=== PATIENT | female | born 1975 | race Caucasian/White ===

== ENCOUNTER 2019-02-18 08:14 | Emergency (ER) | payer OTHER, SELFPAY ==
[2019-02-18 08:16] VITALS: BP 150/97; PULSE 89; RESP 16; TEMP 36.1; O2SAT 100; BMI 50.0
--- NOTE | 2019-02-18 08:27 | RAD_ITS ---
STUDY: X-RAY - LEFT ANKLE REASON FOR EXAM: Female, 43 years old. Status post fall. Left lateral ankle pain. TECHNIQUE: 3 view(s) of the ankle. COMPARISON: None. FINDINGS: Normal visualized distal tibia and fibula. Normal medial and lateral malleoli. Normal tibiotalar articulation and ankle mortise. A plantar calcaneal spur. The visualized subtalar, talonavicular, calcaneocuboid and tarsal articulations are normal. There is mild soft tissue swelling laterally. RAD/Ankle min 3 Views IMPRESSION: Mild soft tissue swelling. No demonstrated acute osseous injury. Electronically Signed: Deejay Coyne MD at 8:46 EDT Tel , Service support ,
--- NOTE | 2019-02-18 08:27 | RAD_ITS ---
STUDY: X-RAY - LEFT FOOT CLINICAL: Female, 43 years old. Status post fall. TECHNIQUE: 3 view(s) of the foot. COMPARISON: None. FINDINGS: There is a plantar calcaneal spur. Normal visualized subtalar, talonavicular, calcaneocuboid, tarsal and tarsometatarsal articulations. Normal metatarsi. Normal metatarsophalangeal joint of the great toe. Normal tibial and fibular sesamoid bones. Normal interphalangeal joint of the great toe. Normal phalanges of the great toe. Normal second through fifth metatarsophalangeal joints. Normal interphalangeal joints and phalanges of the lesser toes. The soft tissue structures are unremarkable. RAD/Foot min 3 Views IMPRESSION: No demonstrated acute osseous changes. Electronically Signed: Deejay Coyne MD at 8:45 EDT Tel , Service support ,
--- NOTE | 2019-02-18 08:46 | ED.DCSUM_ITS ---
- ER Visit Summary Date of Service: 02/18/19 Chief Complaint: Left foot injury History of Present Illness: The patient is a 43 F states she is going to stairs last night when she slipped and fell sliding down 5 stairs. When she was sliding she felt a pop in her dorsum of her left foot. She notes pain with ambulation. She denies any other injuries. Had to call off work today due to pain. Physical Examination: Afebrile vital signs stable Patient is tenderness palpation over the dorsum of the left foot. There is no significant swelling or ecchymosis noted. Neurovascular intact. No leg pain. No knee pain. No breaks in skin. Test Results: X-rays of the left foot and ankle were negative for fracture. Emergency Department Course and Treatment: Patient will be placed in Moises wrap instructions for ice and ibuprofen follow-up with primary care if not improving return if worsening or concerns Impression: 1. Left foot ligamentous sprain This note was generated with [employer] dictation software. It may contain incorrect words, spelling, and punctuation that were not noted in review of the chart prior to signing ED Disposition - Plan for ED Patient: Disposition: Home or Assisted Living Instructions: Sprain Foot Referrals: Miguel Acosta MD [Primary Care Provider] - 10-14 Days if not better
--- NOTE | 2019-02-18 09:08 | ED.RN ---
DISCHARGE INSTRUCTIONS GIVEN TO AND REVIEWED WITH PATIENT, PATIENT DENIES QUESTIONS OR CONCERNS AND VOICES UNDERSTANDING OF DISCHARGE INSTRUCTIONS. PT AMBULATES OUT OF ROOM WITHOUT DIFFICULTY.
== END 2019-02-18 09:09 | disposition home or self-care (01) ==
LOC: ED 09:00
PROVIDERS: Emergency Provider Emergency Medicine; Family Provider Family Medicine; PCP Family Medicine
DX: S93.602A Unspecified sprain of left foot, initial encounter (principal); W10.9XXA Fall (on) (from) unspecified stairs and steps, initial encounter; Y93.9 Activity, unspecified; Y92.9 Unspecified place or not applicable; Y99.9 Unspecified external cause status; I10 Essential (primary) hypertension; Z79.899 Other long term (current) drug therapy
CPT/HCPCS: 73610; 73630; 99282

== ENCOUNTER 2019-04-02 10:48 | Emergency (ER) | payer OTHER, SELFPAY ==
[2019-04-02 10:49] VITALS: BP 145/81; PULSE 102; RESP 16; TEMP 35.8; O2SAT 97; BMI 47.9
[2019-04-02 11:07] VITALS: PULSE 96; RESP 16; TEMP 35.8; O2SAT 100
--- NOTE | 2019-04-02 11:13 | CT_ITS ---
STUDY: CT BRAIN WITHOUT CONTRAST REASON FOR EXAM: Female, 43 years old. Headache, nausea and vomiting following injury RADIATION DOSAGE (If Supplied By Facility): CTDIvol = ( 44.99 ) mGy, DLP = ( 762.36 ) mGycm TECHNIQUE: Transaxial CT imaging of the brain was performed without administration of intravenous contrast material. Individualized dose optimization techniques were used for this CT. COMPARISON: No relevant priors. FINDINGS: Normal soft tissue structures. Normal calvarium. Normal size ventricles and extra-axial spaces for the patient's age. Normal white matter tracts of the cerebral hemispheres. Normal basal ganglia and thalami. Normal brainstem. Normal cerebellum. There is no intracranial hemorrhage. There are no findings of an acute ischemic infarction. Normal visualized paranasal sinuses. CT/Brain/Head without Contrast IMPRESSION: Normal unenhanced CT scan of the brain. Electronically Signed: Deejay Coyne MD at 11:50 EST Tel , Service support ,
--- NOTE | 2019-04-02 11:15 | ED.DCSUM_ITS ---
History of Present Illness Chief Complaint: Nausea/Vomiting/Diarrhea Informant: Patient Onset: Yesterday Context: Gradual Onset Timing: Intermittent Narrative: Patient is a 43-year-old female presenting with headache as well as nausea, vomiting and diarrhea. 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 Yesterday she was cleaning her room when she hit her head. Did not pass out but since then she has had a significant headache. Patient states she does not have a history of migraines. She is pain on the top of her head. She then developed nausea and vomiting. He states that throughout 6 times last night. She then developed diarrhea. Patient denies any blood in her vomit or her stool. She did try to take Tylenol for her headache and Pepto-Bismol for her GI symptoms with no relief. She went to work today and then fell down because she was so weak. She notes she did not pass out. She came to the emergency room to be evaluated further. She denies any history of any abdominal surgeries. She denies any vision changes, numbness or tingling. She states she has some mild discomfort in her middle abdomen but is a hard time describing it. She denies any urinary symptoms. She denies any other complaints at this time. Past Medical History - Allergies and Home Meds Allergies/Adverse Reactions: Allergies No Known Allergies Allergy (Verified 04/02/19 10:52) Primary Care Physician: Miguel Acosta MD [Primary Care Provider] - Past Medical History: - - HTN Surgical History: noncontributory Smoking Status: Former smoker Review of Systems All systems negative except as indicated General: Reports: Malaise Gastrointestinal: Reports: Abdominal pain - mild, diffuse, Nausea, Vomiting, Diarrhea Neurological: Reports: Headache Physical Exam Vital Signs/Narrative: Vital Signs Temp Pulse Resp BP Pulse Ox 04/02/19 11:07 96.4 F L 96 16 100 04/02/19 10:49 96.4 F L 102 H 16 145/81 H 97 Inital Vital Signs reviewed: Yes General: Well nourished, Well developed, Obese, No Acute Distress Head: Normocephalic, Atraumatic Eyes: Perrl, EOMI ENT: Moist mucous membranes, No rhinorrhea Neck: Supple, Nontender Cardiovascular: Regular rate, Regular rhythm, No murmurs Respiratory: No distress, CTA bilaterally, Chest nontender Abdomen: Soft, Nontender, Nondistended, Normal bowel sounds. Negative for: Guarding, Rebound tenderness Back: Nontender, Normal Inspection. Negative for: CVA tenderness Extremities: Nontender, No edema Skin: Normal color, No rash Neurological: Alert, Oriented x3, Cranial nerves II-XII grossly intact, Normal Strength, Normal Sensation Psychological: Normal affect, Normal Mood Diagnostic/Tx/Re-eval Clinical Impression(s) from Imaging Studies Brain CT 04/02/19 11:13 IMPRESSION: Normal unenhanced CT scan of the brain. Electronically Signed: Deejay Coyne MD at 11:50 EST Tel , Service support , Laboratory Data 04/02/19 04/02/19 04/02/19 11:20 11:20 11:24 WBC 7.2 RBC 4.35 Hgb 12.7 Hct 38.2 MCV 87.8 MCH 29.2 MCHC 33.2 RDW Std Deviation 41.6 RDW Coeff of Stephenie 13.0 Plt Count 333 MPV 9.1 Immature Gran % (Auto) 0.400 Neut % (Auto) 64.6 Lymph % (Auto) 23.6 Wheeler % (Auto) 8.8 Eos % (Auto) 1.9 Baso % (Auto) 0.7 Absolute Neuts (auto) 4.6 Absolute Lymphs (auto) 1.70 Nucleated RBC % 0 Sodium 140 Potassium 3.8 Chloride 105 Carbon Dioxide 27.0 Anion Gap 8 BUN 22 H Creatinine 1.24 H Estim Creat Clear Calc 56.89 Est GFR (MDRD) Af Amer 61 Est GFR (MDRD) Non-Af 50 L BUN/Creatinine Ratio 17.7 Glucose 113 H Calcium 9.0 Total Bilirubin 0.60 AST 17 ALT 28 Alkaline Phosphatase 90 Total Protein 8.0 Albumin 3.8 Globulin 4.2 Albumin/Globulin Ratio 0.9 Lipase 102 Urine Color Urine Clarity Urine pH Ur Specific [place] Urine Protein Urine Glucose (UA) Urine Ketones Urine Occult Blood Urine Nitrite Urine Bilirubin Urine Urobilinogen Ur Leukocyte Esterase Urine RBC Urine WBC Ur Squamous Epith Cells Amorphous Sediment Urine Bacteria Urine Mucus Urine Test Negative 04/02/19 11:24 WBC RBC Hgb Hct MCV MCH MCHC RDW Std Deviation RDW Coeff of Stephenie Plt Count MPV Immature Gran % (Auto) Neut % (Auto) Lymph % (Auto) Wheeler % (Auto) Eos % (Auto) Baso % (Auto) Absolute Neuts (auto) Absolute Lymphs (auto) Nucleated RBC % Sodium Potassium Chloride Carbon Dioxide Anion Gap BUN Creatinine Estim Creat Clear Calc Est GFR (MDRD) Af Amer Est GFR (MDRD) Non-Af BUN/Creatinine Ratio Glucose Calcium Total Bilirubin AST ALT Alkaline Phosphatase Total Protein Albumin Globulin Albumin/Globulin Ratio Lipase Urine Color Yellow Urine Clarity Clear Urine pH 6.0 Ur Specific [place] 1.010 Urine Protein 15 H Urine Glucose (UA) Normal Urine Ketones Negative Urine Occult Blood Negative Urine Nitrite Negative Urine Bilirubin Negative Urine Urobilinogen Normal Ur Leukocyte Esterase Negative Urine RBC 0 SEEN Urine WBC 0 SEEN Ur Squamous Epith Cells 0-5 SEEN Amorphous Sediment 2+ Urine Bacteria 0 SEEN Urine Mucus 0 SEEN Urine Test - Medical Decision Making Evaluated for headache as well as nausea, vomiting diarrhea. She appears nontoxic in no acute distress. Her abdomen is soft. She does not have any peritoneal signs. She does not have any meningeal signs. Patient hit her head had a possible presyncopal episode and vomiting today head CT is obtained. Does not show any acute intracranial process. Patient is a normal neurologic exam. CBC, CMP and lipase are grossly normal. Creatinine is mildly elevated by do not know her baseline. She is encouraged to drink plenty of fluids and is given IV fluids in the emergency room. Urinalysis does not show signs of infection. Patient has improvement of her symptoms with fluid and Zofran. She will be discharged home with symptom medic treatment including a prescription for Zofran. She is given a work note for today. She is counseled to continue using Pepto-Bismol for her diarrhea. She instructed to follow-up with her primary care provider. Patient is counseled on signs and symptoms requiring return to the emergency room. Patient verbalizes agreement and understand this plan. Patient discharged home in stable and improved condition. ED Disposition - Plan for ED Patient: Disposition: Home or Assisted Living Diagnosis: Nausea vomiting and diarrhea, Closed head injury Instructions: VOMITING AND DIARRHEA, Nonspecific (Adult), HEAD INJURY, No Wake- Up (Adult) Prescriptions: Ondansetron [Zofran Odt] 4 mg PO Q8H PRN PRN #15 tab PRN Reason: Nausea Prescription Printed Referrals: Miguel Acosta MD [Primary Care Provider] - Additional Instructions: Drink plenty of fluids. Continue take Pepto-Bismol as needed for your diarrhea. Be aware that it can cause your stool to turn black. Take Tylenol as needed for headache. Return to emergency room with worsening symptoms.
[2019-04-02] MEDS: Ondansetron 4 MG/2 ML Vial IV (11:20)
[2019-04-02] MEDS: 0.9% Normal Saline 1,000 ML 1000 ML IV (11:20)
[2019-04-02 11:32] LABS: Bacteria 0 SEEN /hpf (None Seen); Mucous, Urine 0 SEEN /hpf (<or=2+); Red Blood Cells-Urine 0 SEEN /hpf (0-5); White Blood Cells 0 SEEN /hpf (0-5)
[2019-04-02 11:35] LABS: Absolute Neutrophil Count 4.6 X10^3/uL (2.0-7.7); Basophil# 0.05 X10^3/uL; Basophil% 0.7 % (0-1); Eosinophil# 0.14 X10^3/uL; Eosinophils% 1.9 % (0-5); Hematocrit 38.2 % (37-47); Hemoglobin 12.7 g/dL (12.0-15.0); Lymphocyte % 23.6 % (19-41); Mean Corp Hgb Conc 33.2 g/dL (32-36); Mean Corpuscular Hgb 29.2 pg (27.0-32.0); Mean Corpuscular Volume 87.8 fL (81-99); Mean Platelet Vol. 9.1 fl (6.2-12.0); Monocyte# 0.63 X10^3/uL; Monocyte% 8.8 % (0-10); NRBC Flagged by Analyzer 0 % (0-5); Neutrophil # 4.64 X10^3/uL (2.7-7.7); Neutrophil % 64.6 % (47-70); Platelet Count 333 K/mm3 (150-450); RBC Distribution Width SD 41.6 fl (35.1-43.9); Red Blood Count 4.35 M/mm3 (4.2-5.4); White Blood Count 7.2 K/mm3 (4.4-11.0)
[2019-04-02 11:35] LABS: Color, Urine Yellow (Yellow); Glucose, Dipstick Normal (Normal); Ketone-Dipstick Negative (Negative); Leukocyte Esterase-Dipstick Negative /ul (Negative); Nitrite-Dipstick Negative (Negative); Occult Blood-Urine Negative /ul (Negative); Protein-Dipstick 15 mg/dl (Negative); Urine Bilirubin Dipstick Negative (Negative); Urine Clarity Clear (Clear); Urine Urobilinogen Normal (Normal)
[2019-04-02 11:36] LABS: Internal QC Validated? YES +Cl - CLEAR BKGD; Pregnancy, Urine Negative Negative
[2019-04-02 11:42] LABS: Amorphous Sediment 2+; Squamous Epithelial Cells - UA 0-5 SEEN /hpf (5-10)
[2019-04-02 11:55] LABS: ALB/GLOB Ratio 0.9 RATIO (0.9-2.4); AST(SGOT) 17 U/L (15-37); Alanine Aminotransfer ALT/SGPT 28 U/L (13-56); Albumin, Serum 3.8 g/dL (3.2-5.0); Alkaline Phosphatase 90 U/L (45-117); Anion Gap 8 (5-15); BUN 22 mg/dL (7-18); BUN/Creat Ratio 17.7 RATIO (10-20); Chloride 105 mmol/L (98-107); Creatinine, Serum 1.24 mg/dL (0.55-1.02); EST Glomerular Filtration Rate 50 mL/min (>60); Est Glom Filt Rate - Afr Amer 61 mL/min (>60); Estimated Creatinine Clearance 56.89 ml/min; Globulin 4.2 g/dL (2.2-4.2); Glucose 113 mg/dL (74-106); Lipase 102 U/L (73-393); Potassium 3.8 mmol/L (3.5-5.1); Sodium Level 140 mmol/L (136-145)
[2019-04-02 12:00] VITALS: BP 145/81; PULSE 96; RESP 16; TEMP 35.8; O2SAT 100
== END 2019-04-02 12:47 | disposition home or self-care (01) ==
PROVIDERS: Emergency Provider Emergency Medicine; Family Provider Family Medicine; PCP Family Medicine
DX: S09.90XA Unspecified injury of head, initial encounter (principal); W22.8XXA Striking against or struck by other objects, initial encounter; Y93.E9 Activity, other interior property and clothing maintenance; Y92.59 Other trade areas as the place of occurrence of the external cause; Y99.0 Civilian activity done for income or pay; R11.2 Nausea with vomiting, unspecified; R19.7 Diarrhea, unspecified; I10 Essential (primary) hypertension; Z79.899 Other long term (current) drug therapy; Z87.891 Personal history of nicotine dependence
CPT/HCPCS: 70450; 80053; 81001; 81025; 83690; 85025; 96361; 96374; 99284; J7030; A4216; J2405

== ENCOUNTER 2020-09-12 10:21 | Day surgery (SDC) | payer SELFPAY ==
--- NOTE | 2020-09-09 17:21 | PCM.HPOB.BLA ---
- Problem List (1) DUB (dysfunctional uterine bleeding) Status: Acute (2) Uterine polyp Status: Acute History and Physical Date of Admission: 09/12/20 DATE OF SERVICE: September 09, 2020 ? PROBLEM:?DUB, uterine polyp ? DIAGNOSIS:?DUB, uterine polyp ? PAST SURGICAL HISTORY:? PAST SURGICAL HISTORYExpand by Default PAST SURGICAL HISTORY Procedure Laterality Date ? PAST SURGICAL HISTORY OF ? ? ? tongue tied procedure in childhood ? PAST MEDICAL HISTORY:? PAST MEDICAL HISTORYExpand by Default PAST MEDICAL HISTORY Diagnosis Date ? Hypertension ? ? Morbid obesity (HCC) ? ? Type 2 diabetes (HCC) ? ? SUBJECTIVE:?Irregular cycles and menorrhagia ? SOCIAL HISTORY:? SOCIAL HISTORYExpand by Default Social History ? Tobacco Use ? Smoking status: Former Smoker ? ? Years: 4.00 ? ? Types: Cigarettes ? ? Quit date: 07/04/2006 ? ? Years since quittin.1 ? Smokeless tobacco: Never Used ? Tobacco comment: 1 pack would last 2 weeks Vaping Use ? Vaping Use: Never used Substance Use Topics ? Alcohol use: Yes ? ? Alcohol/week: 2.5 standard drinks ? ? Types: 1 Glasses of Wine (5oz) per week ? Drug use: No ? ALLERGIESExpand by Default ALLERGIES No Known Allergies ? Current Outpatient Medications on File Prior to Visit Medication Sig ? atorvastatin (LIPITOR) 10 mg tablet Take 1 tablet by mouth daily at bedtime. For cholesterol. ? metFORMIN (GLUCOPHAGE) 500 mg tablet Take 1 tablet by mouth twice daily with meals. . ? lisinopril (ZESTRIL, PRINIVIL) 40 mg tablet Take 1 tablet by mouth once daily. ? hydroCHLOROthiazide (HYDRODIURIL, ESIDRIX) 25 mg tablet Take 1 tablet by mouth once daily. No current facility-administered medications on file prior to visit. ? OBJECTIVE: ? VITALS:? BP 124/84 ? Wt (!) 360 lb (163.3 kg) ? LMP 07/31/2020 ? BMI 56.38 kg/m? ? HEENT: ?Normocephalic, atraumatic, Mucus membranes moist without lesions. ? NECK: ???Soft and Supple. ?No adenopathy , thyromegaly or bruits. ? SKIN: No lesions. ? CHEST: Clear to auscultation. ?No wheezes or rales. ?Good air exchange. ? HEART: Regular rate and rhythm ?No S3 or S4. ?No gallops or rubs. ? BACK: Nontender with no CVA tenderness. ? ABDOMEN: Soft, non-tender, non-distended, no masses, no hepatosplenomegaly. ? LOWER EXTREMITIES: There was no pitting edema, no palpable cords and no skin changes.? ? Pelvic US: Impression Anteverted fibroid uterus that measures 93 mm x 53 mm x 66 mm. Fibroid(s): Size 44 mm x 30 mm x 33 mm. Mean 35.7 mm. Vol 22.808 cm?. Left lateral ?anterior wall Polyp(s): Size 22 mm x 11 mm x 15 mm. Mean 16.0 mm. lower uterine segment The central endometrium complex measures 20.7 mm in combined thickness. The contour of the endometrial cavity was normal on 3-D imaging. The right ovary is normal appearing. The left ovary is not visualized. There is no free fluid in the pelvic CDS. Recommendations Consider further clinical evaluation of the endometrial cavity. ? ASSESSMENT:?DUB, uterine polyp ? PLAN:?Discussed pelvic US results showing a polyp. Reviewed that there may not be a polyp present at the time of hysteroscopy. Discussed option for in office hysteroscope. Recommend hysteroscopy, polypectomy, D&C. Discussed options for progesterone IUD placement at the time of surgery as well, and she will consider and call if she desires placement.?The rationale for the proposed surgery was discussed in addition to risks, benefits, and alternatives. ?General pre- and post-operative care was reviewed. ?Questions were answered. ?After discussion, the patient indicated a desire to proceed with the planned surgery. ? Janae Mercedes,?DO
[2020-09-12] VITALS (8 sets, daily range): BP systolic 108–145; BP diastolic 56–95; PULSE 93–113; RESP 16–20; TEMP 36.3–37.1; O2SAT 93–96; BMI 57.6
[2020-09-12 10:55] LABS: Internal QC Validated? YES +Cl - CLEAR BKGD; Pregnancy, Urine Negative Negative
[2020-09-12 11:12] LABS: Hematocrit 39.4 % (37-47); Hemoglobin 12.5 g/dL (12.0-15.0); Mean Corp Hgb Conc 31.7 g/dL (32-36); Mean Corpuscular Hgb 29.5 pg (27.0-32.0); Mean Corpuscular Volume 92.9 fL (81-99); Mean Platelet Vol. 9.6 fl (6.2-12.0); Platelet Count 304 K/mm3 (150-450); RBC Distribution Width CV 13.9 % (11.6-14.6); RBC Distribution Width SD 47.2 fl (35.1-43.9); Red Blood Count 4.24 M/mm3 (4.2-5.4); White Blood Count 8.9 K/mm3 (4.4-11.0)
[2020-09-12 11:25] LABS: ALB/GLOB Ratio 0.9 RATIO (0.9-2.4); AST(SGOT) 49 U/L (15-37); Alanine Aminotransfer ALT/SGPT 79 U/L (13-56); Albumin, Serum 3.8 g/dL (3.2-5.0); Alkaline Phosphatase 117 U/L (45-117); Anion Gap 8 (5-15); BUN 20 mg/dL (7-18); BUN/Creat Ratio 16.4 RATIO (10-20); Calcium,Total 9.5 mg/dL (8.5-10.1); Chloride 104 mmol/L (98-107); Creatinine, Serum 1.22 mg/dL (0.55-1.02); EST Glomerular Filtration Rate 51 mL/min (>60); Est Glom Filt Rate - Afr Amer 61 mL/min (>60); Estimated Creatinine Clearance 55.09 ml/min; Globulin 4.2 g/dL (2.2-4.2); Glucose 151 mg/dL (74-106); Sodium Level 137 mmol/L (136-145)
[2020-09-12 11:26] LABS: Bedside Glucose 150 mg/dL (70-110)
[2020-09-12] MEDS: Lactated Ringers 1,000 ML 100 ML IV (12:00)
--- NOTE | 2020-09-12 13:30 | EMB_PTH ---
PATIENT: SIERRA RESENDIZ [place] [facility] [id number] AGE/SX: 44/F ROOM: RE09/12/[address]: Dr. Janae Mercedes DO : 1975 BED: DIS: 09/12/2020 SPEC #: [id number] RECD: 09/12/20 15:06 STATUS: MOON REMarito #: [id number] BILL: 09/12/20 13:[address]: Janae Mercedes DEPT: SURGICAL PATHOLOGY RECD BY: Maile Levine ENTERED: 09/13/20 07:04 SP TYPE: ENDOM BX/C KATIE DR: Dr. Miguel Acosta MD Tissues: Endometrium, NOS Procedures: Surgery Specimen Level IV HEADER OPERATION: Hysteroscopy, D & C, pap smear, IUD insertion PRE-OP DIAGNOSIS: Dysfunctional uterine bleeding; uterine polyp TISSUE SUBMITTED: Endometrial curettings MICROSCOPIC DIAGNOSIS Endometrium, curettings: Simple and focal complex hyperplasia without atypia. Rare fragments of benign squamous mucosa. AM:danya 09/16/2020 MICROSCOPIC DESCRIPTION Slides are reviewed. GROSS DESCRIPTION Received in fixative is one container labeled with the patient's name and designated endometrial curettings. The specimen consists of multiple fragments of hemorrhagic soft tissue mixed with blood clot that in aggregate measure 7.5 x 3 x 0.3 cm. The specimen is totally submitted in three cassettes. / SJ:danya 09/13/20 TC:5 CPT: 02047
--- NOTE | 2020-09-12 14:28 | DCINST_ITS ---
Discharge Diet: No Restrictions Discharge Activity: [address] - More than 24 hours after surgery May resume sexual activity in: 1 week - No tampons, intercourse, hot tubs, tub baths, or pools Weight Bearing Status: Weight bearing as tolerated Lifting Restrictions: None Call your doctor if you observe: Fever of 101 or Higher, Inability to urinate, Inability to have a bowel movement, Using more than one pad per hour, Shortness of breath, Dizziness, Fainting spells, Swelling in the ankles, Chest pain, Increased palpitations (irregular heartbeat), Calf discomfort, Uncontrolled pain Allergies/Adverse Reactions: Allergies No Known Allergies Allergy (Verified 09/12/20 10:50) Medications to take at Discharge Hydrochlorothiazide [Hctz] 25 mg PO DAILY 02/18/19 Lisinopril 40 mg PO DAILY 02/18/19 Atorvastatin Calcium 10 mg PO QHS 09/11/20 Metformin HCl 1,000 mg PO BID 09/11/20 Primary Care Physician: Miguel Acosta MD [Primary Care Provider] - Test Results: Test results from this visit will be discussed in further detail at your follow- up appointment, if applicable. Please Follow Up With: Janae Mercedes DO When: 1 week
--- NOTE | 2020-09-12 14:29 | OP.PCM_ITS ---
Problem List (1) DUB (dysfunctional uterine bleeding) Status: Acute (2) Uterine polyp Status: Acute Report of Operation Date of Procedure: 09/12/20 Pre-Operative Diagnosis: DUB, uterine polyp on pelvic US Post-Operative Diagnosis: DUB, thickened appearing endometrium, enlarged uterine cavity Surgery/Procedure Performed:: Hysteroscopy, D&C, Mirena IUD placement Description of Surgical Findings:: No descent of uterus and cervix. Uterus sounded to 11 cm. The uterine cavity was normal-appearing on hysteroscopy but visualization was limited given diffuse thickening of the endometrium and active bleeding. Bilateral tubal ostia were not visualized. No obvious polyps or fibroids were noted, but visibility was limited. Moderate to large amount of endometrial tissue on sharp curettage. Type of Anesthesia:: MAC Special Medications: None Specimen's removed: Endometrial curettings Drains: None Estimated Blood Loss (mL): < 50 cc Fluids Replaced: 500 cc Description of Procedure: Start time 1401 Stop time 1424 Patient was taken to the operating room where MAC anesthesia was found be adequate. She was prepped and draped in the dorsal lithotomy position using yel lowfin stirrups. A weighted speculum was placed in the vagina, and the right angle retractor was used anteriorly. The cervix was unable to be visualized given body habitus. A bimanual exam was performed and the cervix was palpated, and a ring forceps was placed on the posterior lip of the cervix. This ring forceps was used to apply gentle traction on the cervix. Right angle retractors was placed in the posterior and anterior vagina. The cervix was visualized. The anterior lip of the cervix was grasped with a single-tooth tenaculum. The cervix was serially dilated to accommodate the Symphion hysteroscope. The uterus sounded to 11 cm. The Symphion hysteroscope was advanced to the fundus of the uterus and the cavity was distended with normal saline as distention media. The endometrial lining was diffusely thickened and bleeding was noted. Visibility was limited given this. The uterine cavity was normal-appearing without polyps or fibroids. Bilateral tubal ostia were not visualized. The hysteroscope was then removed. A sharp curettage was performed for moderate to large amount of tissue. Endometrial curettings were sent to pathology for review. The Mirena IUD was set to a cavity length of 11 cm, and the IUD was placed in usual sterile fashion. The strings were cut to 2 cm in length. All instruments were removed from the vagina. Bleeding was hemostatic. Instrument and sponge counts were correct. The patient was taken to the recovery in stable condition. Grafts/Implants Used: Mirena IUD - Complications None - Admit VTE Documentation VTE Present on Admission: No VTE Mechan Device Prophylaxis: SCD's VTE Pharm Prophylaxis ordered?: No
== END 2020-09-12 15:34 | disposition home or self-care (01) ==
LOC: SDC 10:22 → AC 10:23
PROVIDERS: PCP Family Medicine; Referring Provider Obstetrics & Gynecology; Visit Provider Obstetrics & Gynecology
PROC: 0UB98ZZ Excision of Uterus, Via Natural or Artificial Opening Endoscopic (ICD-10-PCS; CPT 58558; principal; 2020-09-12 13:15)
DX: D25.9 Leiomyoma of uterus, unspecified (principal); N84.0 Polyp of corpus uteri; N93.8 Other specified abnormal uterine and vaginal bleeding; Z20.822 Contact with and (suspected) exposure to COVID-19; I10 Essential (primary) hypertension; E11.9 Type 2 diabetes mellitus without complications; E66.01 Morbid (severe) obesity due to excess calories; Z79.899 Other long term (current) drug therapy; Z79.84 Long term (current) use of oral hypoglycemic drugs; Z87.891 Personal history of nicotine dependence
CPT/HCPCS: 58300; 58558; 80053; 81025; 82962; 85027; 86850; 86900; 86901; 87426; 88305; J7120

== ENCOUNTER 2023-07-29 09:23 | Emergency (ER) | payer SELFPAY ==
[2023-07-29 09:24] VITALS: BP 151/82; PULSE 102; RESP 24; TEMP 37.1; O2SAT 98; BMI 51.6
--- NOTE | 2023-07-29 09:29 | EX.ED.DYSGE1 ---
HPI History of Present Illness Chief Complaint: Cold Sx Informant: patient Onset/Context/Timing Onset: Days (5) Context: Gradual Onset Timing: Continuous Quality: Barky Location: Chest Worsened by: Nothing Relieved by: Tylenol, Coricidin HBP Narrative Narrative: Patient presents with cough and sore throat that has been getting worse over the past 5 days. Patient states she has been running a fever and chills. Patient states her temperature was up to 101 at home. Patient admits to some rhinorrhea and a sore throat. Patient states she has been taking Tylenol and Coricidin HBP with some relief. Patient states nothing makes her symptoms any worse. Patient describes her cough as barky. Patient admits to decreased appetite. Patient states her had similar symptoms. [facility] Medical History (Updated 07/29/23 @ 11:[address] Gigi Molina DO) Diabetes type 2, controlled Hypercholesterolemia Hypertension Home Medications hydrochlorothiazide 25 mg tablet 25 mg PO DAILY 02/18/19 [History Last Taken Unknown] lisinopril 40 mg tablet 40 mg PO DAILY 02/18/19 [History Last Taken 09/12/20 08:15] atorvastatin 10 mg tablet 10 mg PO QHS 09/11/20 [History Last Taken Unknown] metformin 500 mg tablet 1,000 mg PO BID 09/11/20 [History Last Taken Unknown] Allergy/AdvReac Type Severity Reaction Status Date / Time No Known Allergies Allergy Verified 07/29/23 09:24 Surgical History no surgical history no surgical history Social History Smoking Status: Former smoker ROS ROS ED Constitutional Constitutional ED: Reports chills and fever(s) Eyes Eyes: Denies blurry vision or change in vision ENT ENT ED: Reports rhinorrhea and sore throat Cardiovascular Cardiovascular: Denies chest pain or palpitations Respiratory/Chest Respiratory/Chest: Denies cough or dyspnea Gastrointestinal Gastrointestinal: Denies nausea or vomiting Genitourinary Genitourinary ED: Denies dysuria or hematuria Musculoskeletal Musculoskeletal: Reports myalgias Integumentary Denies abscess or rash Neurologic Neurologic: Reports headache(s); Denies weakness Allergic/Immunologic Allergic/Immunologic ED: Denies mouth swelling or urticaria EXAM Physical Exam Const Vital Signs: 07/29/23 09:24 Temperature 98.8 F Temperature Source Temporal Pulse Rate 102 H Respiratory Rate 244 H Blood Pressure 151/82 H Blood Pressure Mean 105 Pulse Ox 98 Oxygen Delivery Method Room Air Positive well nourished, well developed and obese General Appearance ED: well developed and NAD Nutritional Appearance: obese HEENT Reports moist mucous membranes HEENT Narrative: Oropharynx shows some mild postnasal drainage. Neck supple and no JVD Resp normal respiratory effort and clear to auscultation bilaterally Cardio regular rate and regular rhythm GI non-tender and non-distended Palpation: soft Neuro oriented x3, CN's II-XII intact bilaterally and no sensory deficits noted Sensorium / Orientation: alert Motor Exam: strength 5/5 throughout Psych mental status grossly normal MDM MDM MDM Narrative Medical decision making narrative: Patient was advised that this most likely viral illness. COVID-19 PCR will be obtained to assess for COVID-19 infection. Influenza PCR will be obtained to assess for influenza infection. RSV PCR will be obtained to assess for RSV infection. Lab Data Lab results narrative: COVID-19 PCR was reviewed and was negative. Influenza PCR was reviewed and was positive for influenza A but negative for influenza B. RSV PCR was reviewed and was negative. Treatment and Re-Evaluation :: Patient was advised of her findings. Patient is out of the window for Tamiflu. Patient was instructed to continue Tylenol and ibuprofen as needed for any fevers. Patient was instructed to drink plenty of fluids. Patient was instructed to follow-up with her primary care physician in 5 to 7 days. Patient understood and was agreeable with the plan. All questions were answered. Discharge Plan Triage Chief Complaint: Cold Sx ED Provider: Gigi Molina Dx/Rx/DC Orders Clinical Impression: Influenza A, Morbid obesity with BMI of 50.0-59.9, adult Instructions: ED Influenza (Adult) Prescriptions: No Action hydrochlorothiazide 25 MG tablet 25 mg PO DAILY lisinopril 40 MG tablet 40 mg PO DAILY metformin 500 MG tablet 1,000 mg PO BID atorvastatin 10 MG tablet 10 mg PO QHS Patient Comments: TAKE 1 TABLET BY MOUTH ONCE DAILY AT BEDTIME FOR CHOLESTEROL Stand Alone Forms: ED Work / School Excuse Primary Care Provider: Miguel Acosta Referrals: Miguel Acosta MD [Primary Care Provider] - 5-7 Days Disposition Disposition: Home, Self Care
[2023-07-29 11:19] VITALS: BP 141/83; PULSE 79; RESP 18; TEMP 36.6; O2SAT 96
== END 2023-07-29 11:21 | disposition home or self-care (01) ==
PROVIDERS: Emergency Provider Emergency Medicine; PCP Family Medicine; Visit Provider Emergency Medicine
DX: J10.1 Influenza due to other identified influenza virus with other respiratory manifestations (principal); E66.01 Morbid (severe) obesity due to excess calories; Z68.43 Body mass index [BMI] 50.0-59.9, adult; E11.9 Type 2 diabetes mellitus without complications; I10 Essential (primary) hypertension; E78.00 Pure hypercholesterolemia, unspecified; Z87.891 Personal history of nicotine dependence
CPT/HCPCS: 87631; 99282